=== PATIENT | male | born 1990 | race Caucasian/White ===

== ENCOUNTER → 2017-11-11 | Outpatient (CLI) | payer OTHER ==
[~2017-11-11] MED LIST: GADOBUTROL 10 ML VIAL IVP ONE; IOPAMIDOL (ISOVUE-300) 100 ML BTL ONE
== END ==
LOC: FIMAGING 06:46
PROVIDERS: ATTEND Internal Medicine Endocrinology, Diabetes & Metabolism
DX: R91.8 Other nonspecific abnormal finding of lung field (principal); E23.0 Hypopituitarism; D76.3 Other histiocytosis syndromes
CPT/HCPCS: A9585; Q9967

== ENCOUNTER → 2018-07-06 | Outpatient (CLI) | payer OTHER ==
[~2018-07-06] MED LIST changes: -IOPAMIDOL (ISOVUE-300) 100 ML BTL ONE
== END ==
LOC: FIMAGING 12:33
PROVIDERS: ATTEND Internal Medicine Hematology & Oncology
DX: E88.89 Other specified metabolic disorders (principal); E87.1 Hypo-osmolality and hyponatremia; R55 Syncope and collapse
CPT/HCPCS: A9585